=== PATIENT | female | born 2000 | race American Indian/Alaskan Native ===

== ENCOUNTER 2021-07-30 08:14 | Emergency (ER) | payer SELFPAY ==
[2021-07-30] MEDS ORDERED: ACETAMINOPHEN 325 MG TAB PO ONE (08:55)
--- NOTE | 2021-07-30 08:55 | Emergency Department Report ---
ED HPI - General Chief complaint: Vaginal Bleeding Stated complaint: SPOTTING (6WKS PREG) Time Seen by Provider: 07/30/21 08:31 Source: patient Mode of arrival: Ambulatory Limitations: No Limitations - History of Present Illness Initial comments: 21-year-old -[place] female who denies any significant past medical history presents to the ER today with complaints of vaginal spotting. Patient states that she is currently about 6 weeks based on her last menstrual cycle which was June 13, 2021. Patient states that she started with spotting about 1 week ago. She states that she has only observe the spotting 3 times in the past 1 week. She states that she has had to use just 1 panty liner in the past week but it was never soaked. She reports associated intermittent of abdominal cramping. She denies any UTI symptoms or any abnormal vaginal discharge. She states she is scheduled to start care with an DRAGGER visit scheduled for next Tuesday in [place]. She is G3, P1 Ab1. Complaint: vaginal bleeding -: week(s) (1) Location: abdomen - Related Data Previous Rx's Medication Instructions Recorded Last Taken Type Ibuprofen [Motrin] 600 mg PO Q8H PRN #20 tablet 05/02/18 Unknown Rx Acetaminophen 500 mg PO Q8H PRN #30 tablet 06/01/18 Unknown Rx 21/Iron Fu/Folic Acid 1 each PO DAILY #30 tablet 06/01/18 Unknown Rx [ Complete Caplet] Acetaminophen 650 mg PO QID PRN #30 tablet 06/21/18 Unknown Rx Clindamycin [Clindamycin CAP] 300 mg PO Q8H 10 Days #30 cap 06/21/18 Unknown Rx Fluticasone [Flonase] 1 spray NS QDAY #1 bottle 06/21/18 Unknown Rx guaiFENesin 400 mg PO Q4H PRN #24 tablet 06/21/18 Unknown Rx predniSONE [Deltasone] 40 mg PO QDAY 5 Days #10 tab 06/21/18 Unknown Rx Allergies Allergy/AdvReac Type Severity Reaction Status Date / Time No Known Allergies Allergy Verified 07/30/21 08:29 ED Review of Systems ROS: Stated complaint: SPOTTING (6WKS PREG) Other details as noted in HPI Comment: All other systems reviewed and negative Constitutional: denies: chills, fever Respiratory: denies: cough, shortness of breath, SOB with exertion, SOB at rest, wheezing Cardiovascular: denies: chest pain, palpitations Gastrointestinal: abdominal pain. denies: nausea, diarrhea, constipation, hematemesis, hematochezia Genitourinary: other (Abnormal vaginal bleeding; +6-week per home test). denies: urgency, dysuria, frequency, hematuria, discharge Musculoskeletal: back pain Skin: as per HPI. denies: change in color, change in hair/nails, pruritus Neurological: denies: headache, weakness, paresthesias, confusion, abnormal gait, vertigo Psychiatric: denies: anxiety, depression, auditory hallucinations, visual hallucinations, homicidal thoughts, suicidal thoughts Hematological/Lymphatic: denies: easy bleeding, easy bruising, swollen glands ED Past Medical Hx - Past Medical History Additional medical history: low iron - Social History Smoking Status: Never Smoker Substance Use Type: None - Medications Home Medications: Home Medications Medication Instructions Recorded Confirmed Last Taken Type Ibuprofen [Motrin] 600 mg PO Q8H PRN #20 tablet 05/02/18 Unknown Rx Acetaminophen 500 mg PO Q8H PRN #30 tablet 06/01/18 Unknown Rx 21/Iron Fu/Folic Acid 1 each PO DAILY #30 tablet 06/01/18 Unknown Rx [ Complete Caplet] Acetaminophen 650 mg PO QID PRN #30 tablet 06/21/18 Unknown Rx Clindamycin [Clindamycin CAP] 300 mg PO Q8H 10 Days #30 cap 06/21/18 Unknown Rx Fluticasone [Flonase] 1 spray NS QDAY #1 bottle 06/21/18 Unknown Rx guaiFENesin 400 mg PO Q4H PRN #24 tablet 06/21/18 Unknown Rx predniSONE [Deltasone] 40 mg PO QDAY 5 Days #10 tab 06/21/18 Unknown Rx ED Physical Exam - General Limitations: No Limitations General appearance: alert, in no apparent distress - Head Head exam: Present: atraumatic, normocephalic, normal inspection - Eye Eye exam: Present: normal appearance, PERRL, EOMI Pupils: Present: normal accommodation - ENT ENT exam: Present: normal exam, mucous membranes moist, TM's normal bilaterally - Neck Neck exam: Present: normal inspection, full ROM. Absent: meningismus - Respiratory Respiratory exam: Absent: respiratory distress - Cardiovascular Cardiovascular Exam: Present: regular rate - GI/Abdominal GI/Abdominal exam: Present: soft. Absent: distended, tenderness, guarding, rebound - Back Exam Back exam: Present: normal inspection, full ROM - Neurological Exam Neurological exam: Present: alert, oriented X3, CN II-XII intact, normal gait - Psychiatric Psychiatric exam: Present: normal affect, normal mood - Skin Skin exam: Present: intact ED Course Vital Signs 07/30/21 07/30/21 08:26 12:50 Temperature 98.5 F Pulse Rate 114 H 96 H Respiratory 16 16 Rate Blood Pressure 131/76 Blood Pressure 125/71 [Right] O2 Sat by Pulse 98 98 Oximetry ED Medical Decision Making - Lab Data Result diagrams: 07/30/21 08:56 07/30/21 08:56 - Radiology Data Radiology results: report reviewed Patient: ANDREI TAVAREZ MR#: [id number] : 2000 Acct:[id number] Age/Sex: 21 / F ADM Date: 07/30/21 Loc: ED Attending Dr: Ordering Physician: BOB MIN Date of Service: 07/30/21 Procedure(s): US OB transvaginal Accession Number(s): [id number] cc: BOB MIN ULTRASOUND OB TRANSVAGINAL HISTORY: Vaginal spotting during , beta hCG level [id number] TECHNIQUE: Transvaginal ultrasound COMPARISON: No relevant comparison. FINDINGS: The uterus is anteverted and measures 8.6 x 5.0 x 7.0 cm. No uterine mass is appreciated. An intrauterine gestational sac is identified containing a small pole and yolk sac. [place]-rump length measures 3 mm which correlates with a 5 week 6 day . heart rate measures 112 bpm. No subchorionic hemorrhage is detected. The right ovary is unremarkable measuring 3.4 x 1.8 x 2.1 cm. The left ovary measures 3.9 x 2.1 x 3.6 cm and contains a 2 cm hypoechoic area which probably represents a corpus luteum. There is small pelvic ascites. IMPRESSION: Viable single intrauterine as described. Small pelvic ascites. Signer Name: Bebeto Collazo Jr, MD Signed: 07/30/2021 11:51 AM Workstation Name: [id number] Transcribed By: TTR Dictated By: BEBETO COLLAZO JR, MD Electronically Authenticated By: BEBETO COLLAZO JR, MD Signed Date/Time: 07/30/21 1151 DD/ 1149 TD/TT: - Medical Decision Making Labs reviewed --- CBC and [place] [address]. Blood bank shows that patient is AB+ therefore no indication for RhoGam at this time. Urinalysis unremarkable. Ultrasound shows Viable single intrauterine measuring 5 weeks 6 days with heart tones at 112. Patient currently sitting comfortably on recliner. She is not a significant distress. She is neurologically intact with a normal gait. She appears hemodynamically stable. She is not toxic or ill-appearing. She appears well- hydrated. Abdomen is soft and nontender. She reports no worsening bleeding since she has been here in the ER today. Discussed all results with patient. She does have a scheduled appointment with DRAGGER in [place] for Tuesday which I recommended that she keeps. Patient given a copy of her ultrasound report as well as her quant hCG levels. Recommend Tylenol for pain, and avoiding any strenuous activity or sexual intercourse. Patient understands that if at any point her symptoms worsen to return immediately to the ER. Patient expressed understanding of all instructions and agree with plan. Patient was stable at time of discharge. Critical care attestation.: If time is entered above; I have spent that time in minutes in the direct care of this critically ill patient, excluding procedure time. ED Disposition Clinical Impression: Threatened miscarriage Disposition: HOME / SELF CARE / HOMELESS Is pt being admited?: No Does the pt Need Aspirin: No Condition: Stable Instructions: Threatened Miscarriage Additional Instructions: You can take Tylenol as needed to help with pain. Recommend no strenuous activity or sexual intercourse until follow-up with art editor next Tuesday. Continue taking your vitamins. Return to the ER if symptoms worsens. Referrals: PRIMARY CAREMD [Primary Care Provider] - 3-5 Days Forms: Work/School Release Form(ED) Time of Disposition: 12:24
[2021-07-30 09:27] LABS: Basophils % (Auto) 0.9 % (0.0-1.8); Eosinophils # (Auto) 0.2 K/mm3 (0.0-0.4); Hematocrit 33.8 % (30.3-42.9); Hemoglobin 10.9 gm/dl (10.1-14.3); Lymphocytes # (Auto) 1.6 K/mm3 (1.2-5.4); Lymphocytes % (Auto) 30.5 % (13.4-35.0); Mean Corpuscular HGB Conc 32 % (30-34); Mean Corpuscular Volume 87 fl (79-97); Monocytes # (Auto) 0.5 K/mm3 (0.0-0.8); Platelet Count 290 K/mm3 (140-440); Red Blood Count 3.89 M/mm3 (3.65-5.03); Red Cell Distribution Width 15.4 % (13.2-15.2)
[2021-07-30 09:36] LABS: Alanine Aminotransferase 7 units/L (7-56); Albumin 4.3 g/dL (3.9-5); Blood Urea Nitrogen 5 mg/dL (7-17); Calcium 9.1 mg/dL (8.4-10.2); Hemolysis Index 4
[2021-07-30 09:40] LABS: Bilirubin,Urine NEG (Negative); Blood,Urine NEG (Negative); Color,Urine Straw (Yellow); Protein,Urine <15 mg/dL mg/dL (Negative); Urobilinogen,Urine < 2.0 mg/dL (<2.0); WBC,Urine < 1.0 /HPF (0.0-6.0)
[2021-07-30 09:42] LABS: RBC,Urine < 1.0 /HPF (0.0-6.0)
[2021-07-30 09:48] LABS: BUN/Creatinine Ratio 8
--- NOTE | 2021-07-30 11:56 | Ultrasound Report ---
ULTRASOUND OB TRANSVAGINAL HISTORY: Vaginal spotting during , beta hCG level [id number] TECHNIQUE: Transvaginal ultrasound COMPARISON: No relevant comparison. FINDINGS: The uterus is anteverted and measures 8.6 x 5.0 x 7.0 cm. No uterine mass is appreciated. A n intrauterine gestational sac is identified containing a small pole and yolk sac. [place]-rump l ength measures 3 mm which correlates with a 5 week 6 day . heart rate measures 112 bpm . No subchorionic hemorrhage is detected. The right ovary is unremarkable measuring 3.4 x 1.8 x 2.1 cm. The left ovary measures 3.9 x 2.1 x 3.6 cm and contains a 2 cm hypoechoic area which probably represents a corpus luteum. There is small pelvic ascites. IMPRESSION: Viable single intrauterine as described. Small pelvic ascites. Signer Name: Bebeto Shipman Jr, MD Signed: 07/30/2021 11:51 AM Workstation Name: [id number]
[2021-07-30 12:59] VITALS: BP 125/71
== END 2021-07-30 13:00 | disposition home or self-care (01) ==
LOC: ED 08:14
DX: O20.0 Threatened abortion (principal); Z3A.01 Less than 8 weeks gestation of pregnancy
CPT/HCPCS: 36415; 76817; 80053; 81001; 84702; 85025; 86900; 86901; 99284